=== PATIENT | female | born 1995 | race African-American/Black ===

== ENCOUNTER 2017-12-26 13:21 | Emergency (ER) | payer MEDICAID ==
[~2017-12-26] VITALS: Ht 162.6 cm; Wt 48.0 kg
[~2017-12-26 13:21] MED LIST: PREN-88 PO
[2017-12-26] MEDS ORDERED: SODIUM CHLORIDE 0.9% 1,000 ML IV ONE (14:33)
[2017-12-26] MEDS ORDERED: ONDANSETRON HCL 4MG/2ML INJ IV STA (14:33)
[2017-12-26] MEDS ORDERED: KETOROLAC 30MG/ML VIAL IV STA (14:33)
[2017-12-26] MEDS ORDERED: FAMOTIDINE 20MG/2ML VIAL IV ONE (14:45)
[2017-12-26 15:11] LABS: HEMATOCRIT. 46.2 % (36.0-48.0); HEMOGLOBIN. 15.5 g/dL (12.0-16.0); MEAN CORPUSCULAR HEMOGLOBIN 28.9 pg (28.0-32.0); MEAN CORPUSCULAR VOLUME 86.5 fL (81.0-99.0); MEAN PLATELET VOLUME 9.2 fl (7.4-10.4); PLATELET 180 x1000/uL (130-400); RED BLOOD CELL COUNT 5.35 mill/uL (4.2-5.4); RED CELL DISTRIBUTION WIDTH 14.3 % (11.6-14.6)
[2017-12-26 15:19] LABS: CHLORIDE 103 mEq/L (98-107)
[2017-12-26 15:43] LABS: HCG SCREEN NEGATIVE
[2017-12-26 15:55] LABS: CLARITY URINE CLOUDY (CLEAR); COLOR URINE YELLOW (YELLOW); KETONES URINE 1+ (NEGATIVE); LEUKOCYTE ESTERASE URINE NEGATIVE (NEGATIVE); NITRITE URINE NEGATIVE (NEGATIVE); OCCULT BLOOD URINE NEGATIVE (NEGATIVE); PROTEIN URINE TRACE (NEGATIVE); SPECIFIC GRAVITY URINE 1.031 (1.005-1.030); UROBILINOGEN URINE 0.2 E.U./dL (0.2-1.0)
[2017-12-26 16:35] LABS: ATYPICAL LYMPHOCYTES 2; PLATELET ESTIMATE NORMAL
[2017-12-26 17:32] VITALS: BP 121/83
== END 2017-12-26 17:44 | disposition home or self-care (01) ==
LOC: ER 13:21
DX: N39.0 Urinary tract infection, site not specified (principal); R19.7 Diarrhea, unspecified; Z98.890 Other specified postprocedural states
CPT/HCPCS: 36415; 80053; 81003; 81025; 83690; 84703; 85025; 96361; 96374; 96375; 99284; J1885; J2405; J3490; J7030

== ENCOUNTER 2018-12-28 14:34 | Inpatient (IN) | payer MEDICAID ==
[~2018-12-28] VITALS: Ht 154.9 cm; Wt 57.6 kg
[2018-12-28] MEDS ORDERED: LACTATED RINGERS 1,000 ML IV SCH ×2 (14:40→16:00)
[2018-12-28] MEDS ORDERED: DEXT 5%/LR + PITOCIN 20UNITS/L 1,000 ML IV SCH ×2 (14:40→14:51)
[2018-12-28] MEDS ORDERED: METHYLERGONOVINE MALEATE 0.2 MG/ML IM PRN (14:45)
[2018-12-28] MEDS ORDERED: MISOPROSTOL 100MCG TABLET VG SCH (14:45)
[2018-12-28] MEDS ORDERED: CARBOPROST TROMETHAMINE 250 MCG/ML AMPUL IM PRN (14:45)
[2018-12-28] MEDS ORDERED: LIDOCAINE HCL 1% 20ML VIAL (Pyxis) INJ INFIL SCH (14:45)
[2018-12-28] MEDS ORDERED: NALOXONE HCL 0.4 MG/ML 1ML VIAL IM PRN (14:45)
[2018-12-28] MEDS ORDERED: BUTORPHANOL TARTRATE 2 MG/ML VIAL IV PRN (14:45)
[2018-12-28] MEDS ORDERED: IBUPROFEN 400MG TABLET PO PRN (15:00)
[2018-12-28] MEDS ORDERED: DIPHENHYDRAMINE 25MG CAPSULE PO PRN (15:00)
[2018-12-28] MEDS ORDERED: HEMORRHOIDAL SUPP PR PRN (15:00)
[2018-12-28] MEDS ORDERED: ACETAMINOPHEN WITH CODEINE 300/30MG TABLET PO PRN (15:00)
[2018-12-28] MEDS ORDERED: RHO(D) IMMUNE GLOBULIN 300 MCG/SYR IM PRN (15:00)
[2018-12-28 16:15] LABS: BASOPHILS % 0.1 % (0.0-2.0); EOSINOPHILS % 0.2 % (0.0-5.0); HEMATOCRIT. 33.3 % (36.0-48.0); LYMPHOCYTES % 9.1 % (20.0-50.0); MEAN CORPUSCULAR HEMOGLOBIN 28.1 pg (28.0-32.0); MEAN CORPUSCULAR VOLUME 84.9 fL (81.0-99.0); MONOCYTES % 6.9 % (2.0-8.0); NEUTROPHILS % 83.7 % (40.0-76.0); PLATELET 209 x1000/uL (130-400); RED BLOOD CELL COUNT 3.92 mill/uL (4.2-5.4)
[2018-12-28 16:16] LABS: CLARITY URINE CLEAR (CLEAR); COLOR URINE YELLOW (YELLOW); KETONES URINE NEGATIVE (NEGATIVE); LEUKOCYTE ESTERASE URINE NEGATIVE (NEGATIVE); NITRITE URINE NEGATIVE (NEGATIVE); OCCULT BLOOD URINE TRACE (NEGATIVE); PROTEIN URINE NEGATIVE (NEGATIVE); SPECIFIC GRAVITY URINE 1.019 (1.005-1.030)
[2018-12-28] MEDS ORDERED: GLYCERIN/WITCH HAZEL LEAF MEDICATED PAD TOP PRN (16:16)
[2018-12-28] MEDS: IBUPROFEN 800MG TABLET PO PRN (16:16)
[2018-12-28 16:19] LABS: INR 0.9; PARTIAL THROMBOPLASTIN TIME 24.6 sec (23.4-31.0); PROTHROMBIN TIME 9.7 sec (9.6-11.0)
[2018-12-28] MEDS ORDERED: ALPRAZOLAM 0.5 MG TABLET PO NR (16:21)
[2018-12-28 16:27] LABS: *AMPHETAMINES SCREEN URINE NEGATIVE (NEGATIVE); *BARBITURATES SCREEN URINE NEGATIVE (NEGATIVE); *BENZODIAZEPINES SCREEN URINE NEGATIVE (NEGATIVE)
[2018-12-28 16:28] LABS: *COCAINE SCREEN URINE NEGATIVE (NEGATIVE); CANNABINOID URINE SCREEN NEGATIVE (NEGATIVE); METHADONE URINE SCREEN NEGATIVE (NEGATIVE); OPIATES URINE SCREEN NEGATIVE (NEGATIVE); PHENCYCLIDINE URINE SCREEN NEGATIVE (NEGATIVE)
[2018-12-28] MEDS ORDERED: PENICILLIN G POTASSIUM 2.5 MMU in DEXTROSE 5% WATER 50 ML IV SCH (18:00)
[2018-12-28] MEDS: MISOPROSTOL 200MCG TABLET RC SCH ×2 (18:41→22:36)
[2018-12-28 18:55] LABS: CHLORIDE 106 mEq/L (98-107)
[2018-12-28 19:08] LABS: D-DIMER 6.87 mg/L FEU (<0.50)
[2018-12-28 19:50] LABS: HEPATITIS B SURFACE ANTIGEN NEGATIVE
[2018-12-28] MEDS ORDERED: DOCUSATE SODIUM 100MG CAPSULE PO SCH (21:00)
[2018-12-28 23:15] VITALS: BP 140/87
[2018-12-28 23:45] VITALS: BP 125/79
[2018-12-29] MEDS: METHYLERGONOVINE MALEATE 0.2MG TABLET PO SCH ×2 (00:03→09:03)
[2018-12-29 00:15] VITALS: BP 130/78
[2018-12-29 01:06] VITALS: BP 131/77
[2018-12-29] MEDS: IBUPROFEN 800MG TABLET PO PRN ×2 (01:13→09:04)
[2018-12-29 02:50] VITALS: BP 147/97
[2018-12-29] MEDS: MISOPROSTOL 200MCG TABLET RC SCH ×2 (03:04→06:38)
[2018-12-29 06:45] LABS: BASOPHILS % 0.1 % (0.0-2.0); EOSINOPHILS % 0.4 % (0.0-5.0); HEMATOCRIT. 31.1 % (36.0-48.0); HEMOGLOBIN. 10.4 g/dL (12.0-16.0); LYMPHOCYTES % 16.3 % (20.0-50.0); MEAN CORPUSCULAR HEMOGLOBIN 28.2 pg (28.0-32.0); MEAN CORPUSCULAR VOLUME 84.5 fL (81.0-99.0); MEAN PLATELET VOLUME 9.9 fl (7.4-10.4); MONOCYTES % 9.8 % (2.0-8.0); NEUTROPHILS % 73.4 % (40.0-76.0); PLATELET 191 x1000/uL (130-400); RED BLOOD CELL COUNT 3.68 mill/uL (4.2-5.4); RED CELL DISTRIBUTION WIDTH 15.1 % (11.6-14.6)
[2018-12-29 08:30] VITALS: BP 137/89
[2018-12-29] MEDS ORDERED: FERROUS SULFATE 325MG TABLET PO SCH (09:00)
[2018-12-29] MEDS ORDERED: PRENATAL VIT/FE FUMARATE/FA TABLET PO SCH (09:00)
== END 2018-12-29 13:00 | disposition home or self-care (01) | DRG 560 ==
LOC: OBSVTOIN 14:34 → 8 EST LDRP 14:34
PROVIDERS: ADMIT Specialist; ATTEND Specialist
PROC: 10E0XZZ Delivery of Products of Conception, External Approach (ICD-10-PCS; principal; 2018-12-28)
DX: O60.12X0 Preterm labor second trimester with preterm delivery second trimester, not applicable or unspecified (principal); O36.4XX0 Maternal care for intrauterine death, not applicable or unspecified; O32.1XX0 Maternal care for breech presentation, not applicable or unspecified; Z37.1 Single stillbirth; O69.81X0 Labor and delivery complicated by cord around neck, without compression, not applicable or unspecified; Z3A.22 22 weeks gestation of pregnancy
CPT/HCPCS: 36415; 80305; 81003; 84550; 85379; 85384; 86592; 86703; 86762; 86850; 86900; 87340; 88307; G0378; J2540; J2590; J7060; J7120